=== PATIENT | male | born 1945 | race Caucasian/White ===

== ENCOUNTER 2020-06-11 15:58 | Outpatient (CLI) | payer OTHER, SELFPAY ==
--- NOTE | ~2020-06-11 | CT_ITS ---
EXAMINATION: CT brain wo con DATE: 06/11/2020 17:08 INDICATION: Cerebral infarction TECHNIQUE: Computed tomography (CT) of the head was performed without intravenous contrast. The dose- length product was 605.33 mGy-cm. Automated exposure control and iterative reconstruction technique w ere employed. COMPARISON: None FINDINGS: No acute intracranial hemorrhage, infarction, mass or mass effect. No ventriculomegaly or m idline shift. Basilar cisterns are patent. There is intracranial atherosclerosis. There are scattered mild periventricular and subcortical white matter changes, most likely related to small vessel ische alonzo disease (microangiopathy). Basilar cisterns are patent. Paranasal sinuses and mastoids are pneuma tized. No depressed skull fractures. IMPRESSION: 1. No acute intracranial abnormality. 2: Chronic age-related findings. Reviewed, dictated and finalized at location A. R BUSINESS DEVELOPER
--- NOTE | ~2020-06-11 | US_ITS ---
EXAMINATION: US carotid duplex BI DATE: 06/11/2020 17:12 INDICATION: Difficulties with speech or language. TECHNIQUE: Grayscale, color Doppler, and pulsed Doppler images of the cervical carotid arteries were obtained. The degree of vessel stenosis is placed in one of the following categories: normal, <50%, 5 0-69%, >=70% but less than near-occlusion, near-occlusion, or total occlusion. Note that percent sten osis relative to normal distal artery lumen diameter is indirectly measured from velocity measurement s as described by Bob, et al. Radiology 2003; 229:340-346. Notes: Normal: Peak systolic velocity <125 centimeters/sec and no plaque <50%. Peak systolic velocity <125 ( EDV <40; ICA/CCA PSV ratio <2.0; used these factors only a tandem lesions or low cardiac output or co ntralateral disease) 50-69 %: PSV 125-230 (EDV 40-100; ratio 2-4) >= 70% but less than near occlusion: PSV greater than 230 (EDV > 100; ratio> 4.0) Near Occlusion: PSV that is variable; markedly narrowed lumen Occlusion: Absent flow on color/spectral Doppler and no lumen on choudhary scale. COMPARISON: None. FINDINGS: RIGHT: The right common carotid artery (CCA) peak systolic velocity (PSV) is 111 cm/s. The right internal ca rotid artery (ICA) PSV is 72 cm/s. The right ICA end-diastolic velocity (EDV) is 31 cm/s. The right I CA/CCA PSV ratio is 0.65. The external carotid artery (ECA) PSV is 115 cm/s. There is antegrade flow in the right vertebral artery. LEFT: The left CCA PSV is 92 cm/s. The left ICA PSV is 64 cm/s. The left ICA EDV is 24 cm/s. The left ICA/C CA PSV ratio is 0.69. The ECA PSV is 94 cm/s. There is antegrade flow in the left vertebral artery. IMPRESSION: 1. Less than 50% stenosis in the right internal carotid artery by sonographic criteria. 2. Less than 50% stenosis in the left internal carotid artery by sonographic criteria. Reviewed, dictated and finalized at location A. US ADMINISTRATOR IMPRESSION: 1. Less than 50% stenosis in the right internal carotid artery by sonographic john coleman. 2. Less than 50% stenosis in the left internal carotid artery by sonographic sandee taveras.
--- NOTE | ~2020-06-11 | US_ITS ---
EXAMINATION:US venous doppler LE LT INDICATION:Left leg swelling TECHNIQUE: Multiple grayscale, color flow and Doppler images of the left lower extremity deep venous systems were obtained and reviewed. COMPARISON:No prior studies for comparison. FINDINGS: The common femoral, superficial femoral and popliteal veins demonstrate normal respiratory variation, augmentation and compressibility. Color flow is also seen within the posterior tibial, pe roneal, greater saphenous and profunda veins. IMPRESSION: 1: No lower extremity deep venous thrombosis. Reviewed, dictated and finalized at location A. BAG STRIPPER
== END 2020-06-11 15:59 | disposition home or self-care (01) ==
LOC: ANHIMG 15:59
PROVIDERS: PCP Emergency Medicine; Visit Provider Emergency Medicine
DX: I63.9 Cerebral infarction, unspecified (principal); M79.89 Other specified soft tissue disorders; R09.89 Other specified symptoms and signs involving the circulatory and respiratory systems; I65.23 Occlusion and stenosis of bilateral carotid arteries
CPT/HCPCS: 70450; 93880; 93971

== ENCOUNTER 2020-06-18 06:34 | Outpatient (CLI) | payer OTHER, SELFPAY ==
--- NOTE | ~2020-06-18 | MR_ITS ---
EXAMINATION: MRA brain wo con DATE: 06/18/2020 07:50 INDICATION: Cerebral infarction, unspecified. TECHNIQUE: Magnetic resonance angiography (MRA) of the brain was performed without intravenous contra st with T1-weighted SPGR by the 3D [id number] technique. Maximum intensity projection 3D-reconstr uctions were obtained. COMPARISON: Head CT 06/11/2020 FINDINGS: Left vertebral artery is dominant. There is no significant stenosis of basilar artery or the posterio r cerebral arteries. There is no significant stenosis of the intracranial internal carotid arteries o r anterior or middle cerebral arteries. Anterior communicating artery is normal. Posterior communicat ing arteries are not identified. There is no aneurysm. IMPRESSION: 1. Normal head MRA. Reviewed, dictated and finalized at location A. ONAL VAN OWNER OPERATOR IMPRESSION: 1. Normal head MRA.
== END 2020-06-18 06:35 | disposition home or self-care (01) ==
LOC: ANHIMG 06:35
PROVIDERS: PCP Emergency Medicine; Visit Provider Emergency Medicine
DX: I63.9 Cerebral infarction, unspecified (principal)
CPT/HCPCS: 70544

== ENCOUNTER 2020-08-26 12:27 | Outpatient (CLI) | payer OTHER, SELFPAY ==
--- NOTE | ~2020-08-26 | US_ITS ---
EXAMINATION: US venous doppler LE RT DATE: 08/26/2020 12:54 INDICATION: Right lower limb swelling. TECHNIQUE: Grayscale ultrasound images without and with compression and Doppler ultrasound images of the right lower extremity veins were obtained. COMPARISON: None. FINDINGS: The visualized portions of right common femoral vein, profunda (deep) femoral vein, femoral vein, pop liteal vein, peroneal veins, posterior tibial veins, and greater saphenous vein outflow are patent. IMPRESSION: 1. No deep venous thrombosis. Reviewed, dictated and finalized at location B.
== END 2020-08-26 12:28 | disposition home or self-care (01) ==
PROVIDERS: PCP Emergency Medicine; Visit Provider Emergency Medicine
DX: I73.9 Peripheral vascular disease, unspecified (principal); R60.9 Edema, unspecified
CPT/HCPCS: 93971

== ENCOUNTER 2023-02-23 11:15 | Outpatient (RCR) | payer MEDICARE, SELFPAY ==
--- NOTE | 2023-01-21 16:44 | PTOPEVAL1 ---
Assessment and note entered by Meghann Fraser, PT Evaluation Information Assessment Status Evaluation Diagnosis Spondylosis without myelopathy or radiculopathy, weakness, other maliase Therapy conditions other abnormalities of gait and mobility Subjective Information Was in [place] and may have been exposed to Agent [place] 2018 had tremors and then noted would walk and like a drunken inker . Pt reports fell 2019 fell out of house and broke right hip, corected with pins. But reports is dragging left hip with walking. Went to [facility], then [facility], then out patient for right hip. 2020 had a slight stroke, and couldn't talk for a few days . 2021 was outside on the law mower then came in and everything gave out on me . Reported Pain Level Pain Score 0: Self Report Assessment PT Clinical Summary Pt presents with complaints of overall difficulty in mobility and weakness in addition to back pain with activity. Pt and report pt began to decline after hip fracture in 2019, but prior to that noted a tremor and balance deficit in 2018. Pt demos overall weakness, decreased endurance, and gait abnormality. Pt will benefit from physical therapy in order to address deficits, improve mobility and decreased overall burden of care. Plan of Care Interventions Electrical Stimulation,Hot Pack/Cold Pack,Manual Therapy,Neuro Re-education,Patient/Caregiver Educati,Therapeutic Activities,Therapeutic Exercise,Ultrasound Other Interventions DME for foot drop PT Services Indicated Yes Treatment Frequency and 1-2x weekly x 4 weeks Duration These treatments will address the objective and functional deficits as defined above. The patient will be advanced safely and appropriately in order for the patient to progress towards his/her prior level of function. Additional exercises will be introduced and as well as a comprehensive home exercise program upon discharge, if needed, ?to ensure carryover of functional gains achieved in the clinic. This treatment plan has been reviewed and agreement upon by the patient.
--- NOTE | 2023-01-21 16:46 | OPREHPOC ---
Outpatient Therapy Plan of Care This is a Multidisciplinary Plan of Care that may contain components documented by all disciplines (PT, OT, and ST.) PT Problem 1 PT Problem #1 Knowledge Deficit PT Goal 1 Goal Pt will be independent in HEP Pt will verbalize understanding of diagnosis and prognosis Target Visit 8 PT Problem 2 PT Problem #2 Impaired Gait PT Goal 1 Goal Pt will demo 2 min walk test of 60 ft with LRAD Target Visit 8 PT Goal 2 Goal Pt will demo 2 min walk test of 100 ft with LRAD PT Problem 3 PT Problem #3 Impaired Balance PT Goal 1 Goal Pt will demo a 5x with to stand of 30 seconds or less with LRAD PT Goal 2 Goal Pt will demo a 5x sit to stand of 20 seconds or less with LRAD PT Problem 4 PT Problem #4 Impaired Strength PT Goal 1 Goal Pt will demo 4-/5 LE strength BLE PT Goal 2 Goal Pt will demo appropriate standing alignment with LRAD due to functional glute max strength
--- NOTE | 2023-02-23 12:34 | PTOPDC ---
Assessment and note entered by Meghann Fraser, PT Assessment Status Discharge Diagnosis Spondylosis without myelopathy or radiculopathy, weakness, other maliase Subjective Information Has new diagnosis of congestive heart failure, is picking up medication today. Is out of breathe with this. Saw Neurosurgeon Is also seeing Parkinson's specialist today No falls since started therapy. Reports has some improvement in getting legs up on bed, and improvement in getting into and out of jeep. states is same in mobility, dressing, getting out of wheel chair. Also states with all the doctor's appointments they have coming up will not be able to continue attending therapy at this time Reported Pain Level Pain Score 0: Self Report Assessment PT Clinical Summary Pt has attended therapy 5 sessions in 6 weeks overall. Has a new diagnosis of congestive heart failure which he will be starting medication for today. Pt demo's improved 2 min walking however has not met any other goals and has declined in speed of sit>stand activity. Pt's reports they will not be able to attend therapy at this time due to all his doctor's appointments. Pt is thus being discharged from therapy plan of care at this time. Plan of Care PT Services Indicated No
== END 2023-02-23 13:42 | disposition home or self-care (01) ==
LOC: ANHHIPT 11:15
PROVIDERS: PCP Family Medicine; Visit Provider Family Medicine
DX: M47.816 Spondylosis without myelopathy or radiculopathy, lumbar region (principal); R53.81 Other malaise; R53.1 Weakness
CPT/HCPCS: 97110; 97112; 97530; 97750

== ENCOUNTER 2023-07-27 12:38 | Outpatient (CLI) | payer MEDICARE, SELFPAY ==
--- NOTE | 2023-07-27 14:30 | NEURO_ITS ---
Impression: # Non-diabetic with history of congestive heart failure, wheelchair bound and severe (pitting) edema of lower extremities. # Motor/sensory neuropathy. # Needle/EMG exam revealed no fibs or myotonia but decreased motor unit potentials. # Clinical correlation recommended because of severe edema of lower extremities. Nerve Conduction Studies Anti Sensory Summary Table Stim Site NR Peak (ms) P-T Amp (?V) Site1 Site2 Delta-P (ms) Dist (cm) Severino (m/s) Left Saphenous Anti Sensory (Ant Med Mall) NO RESPONSE 14cm NR 14cm Ant Med Mall 0.0 Right Saphenous Anti Sensory (Ant Med Mall) NO RESPONSE 14cm NR 14cm Ant Med Mall 0.0 Left Sup Fibular Anti Sensory (Ant Lat Mall) NO RESPONSE 14 cm NR 14 cm Ant Lat Mall 16.0 Right Sup Fibular Anti Sensory (Ant Lat Mall) NO RESPONSE 14 cm NR 14 cm Ant Lat Mall 16.0 Left Sural Anti Sensory (Lat Mall) NO RESPONSE Calf NR Calf Lat Mall 16.0 Right Sural Anti Sensory (Lat Mall) NO RESPONSE Calf NR Calf Lat Mall 16.0 Motor Summary Table Stim Site NR Onset (ms) O-P Amp (mV) Site1 Site2 Delta-0 (ms) Dist (cm) Severino (m/s) Left Peroneal Motor (Vastus Med) Ankle 4.5 1.1 Popit Ankle 10.4 41.0 39 Popit 14.9 0.5 Right Peroneal Motor (Vastus Med) Ankle 4.8 1.2 Popit Ankle 10.0 42.0 42 Popit 14.8 0.1 Left Tibial Motor (Abd Alvarenga Brev) NO RESPONSE Ankle NR Knee NR Right Tibial Motor (Abd Alvarenga Brev) Ankle 4.6 1.1 Knee Ankle 12.4 43.0 35 Knee 17.0 1.0 F Wave Studies NR F-Lat (ms) L-R F-Lat (ms) Left Peroneal (Mrkrs) (EDB) 58.95 1.99 Right Peroneal (Mrkrs) (EDB) 60.94 1.99 Left Tibial (Mrkrs) (Abd Hallucis) 60.00 1.99 Right Tibial (Mrkrs) (Abd Hallucis) 61.99 1.99 EMG Side Muscle Nerve Root Ins Act Fibs Amp Dur Recrt Comment Right AntTibialis Dp Br Fibular L4-5 Nml Nml Decr >12ms +3 Right Gastroc Tibial S1-2 Nml Nml Decr >12ms +3 Right Fibularis Long Sup Br Fibular L5-S1 Nml Nml Decr >12ms +3 Right Flex Dig Long Tibial L5-S2 Nml Nml Decr >12ms +3 Right Ext Dig Brev Dp Br Fibular L5, S1 Nml Nml Decr >12ms +3 Left AntTibialis Dp Br Fibular L4-5 Nml Nml Decr >12ms +3 Left Gastroc Tibial S1-2 Nml Nml Decr >12ms +3 Left Fibularis Long Sup Br Fibular L5-S1 Nml Nml Decr >12ms +3 Left Flex Dig Long Tibial L5-S2 Nml Nml Decr >12ms +3 Left Ext Dig Brev Dp Br Fibular L5, S1 Nml Nml Decr >12ms +3 MTDD
== END 2023-07-27 12:39 | disposition home or self-care (01) ==
PROVIDERS: PCP Family Medicine; Referring Provider Podiatrist Foot & Ankle Surgery; Visit Provider Family Medicine
DX: R22.43 Localized swelling, mass and lump, lower limb, bilateral (principal); G62.9 Polyneuropathy, unspecified; M21.379 Foot drop, unspecified foot; Z86.79 Personal history of other diseases of the circulatory system
CPT/HCPCS: 95886; 95911

== ENCOUNTER 2025-03-02 11:59 | Emergency (ER) | payer MEDICARE, SELFPAY ==
--- OUTSIDE RECORDS SUMMARY | 2025-03-02 12:02 | XMS_ITS | Clinical Summary ---
Author Organization [facility] Address [address] [place] [address] Care Team Providers Care Ward Secretary Name Role Phone Elliot Maldonado MD Primary Care Provider [phone] Source Comments [facility],non-owned Affiliates and Associated Physician Practices is amultiple site organization consisting of ambulatory clinics and hospital sitesin [place], [place], [place] and [place]. This disclosure is being madepursuant to the Care Everywhere program and may not contain all information available regarding this patient. Last updated 18.[facility] Allergies Active Allergy Reactions Criticality Noted Date Comments Furosemide Swelling 02/25/2023 Tamsulosin Swelling 02/25/2023 Medications * Be aware that medications may not be up to date on this document. Alwaysverify current medications with the patient. rivaroxaban (Xarelto) 20 MG tablet Take 1 (one) tablet by mouth daily with food Active metoclopramide (Reglan) 10 MG tablet Take 1 (one) tablet by mouth 2 times daily Active atorvastatin (Lipitor) 20 MG tablet Take 1 (one) tablet by mouth at bedtime Active digoxin (Lanoxin) 0.125 MG tablet Take 1 (one) tablet by mouth once daily Active Cyanocobalamin (Vitamin B 12) 500 MCG TABS Active Probiotic Product (pocketfungames HEALTH PO) Active Docusate Sodium (STOOL SOFTENER LAXATIVE PO) Active Krill Oil 500 MG CAPS Active CALCIUM CITRATE PO Active Multiple Vitamin (MULTI-VITAMIN DAILY PO) Active Vitamin D3 (D3 2000) 50 MCG (2000 UT) capsule Take 1 (one) capsule by mouth once daily Active TURMERIC PO Active Probiotic Product (PROBIOTIC DAILY PO) Active Active Problems Problem Noted Date Diagnosed Date Encounter for therapeutic drug level monitoring 02/25/2023 02/25/2023 History of cerebrovascular accident 02/25/2023 02/25/2023 Overview (02/25/2023): Feb 03, 2023 Entered By: PIPO HOLBROOK Comment: left hemiparesis 06/2020 Iron deficiency anemia 02/25/2023 Lower urinary tract symptoms 02/25/2023 Other spondylosis, lumbar region 02/25/2023 02/25/2023 Other reduced mobility 02/25/2023 Personal history of (healed) traumatic fracture 02/25/2023 02/25/2023 Atrial fibrillation 02/25/2023 02/25/2023 Tremor 02/25/2023 02/25/2023 Kidney stones 12/03/2021 02/25/2023 Nocturia 12/03/2021 02/25/2023 Current use of long term care social worker anticoagulation 021 02/25/2023 Resolved Problems Problem Noted Date Diagnosed Date Resolved Date Constipation 09/26/2022 02/25/2023 03/25/2023 Social History Tobacco Use Types Packs/Day Years Used Date Smoking Tobacco: Never Smokeless Tobacco: Never Tobacco Cessation:Counseling Given: Not Answered Alcohol Use Standard Drinks/Week Comments Not Currently 0 (1 standard drink = 0.6 oz pur e alcohol) Sex and Gender Information Value Date Recorded Sex Assigned at Not on file Legal Sex Male 3:32 PM CDT Gender Identity Not on file Sexual Orientation Not on file Last Filed Vital Signs Vital Sign Reading Time Taken Comments Blood Pressure 95/66 02/25/2023 9:55 AM CDT Pulse 80 02/25/2023 9:55 AM CDT Temperature 36.7 C (98 F) 02/25/2023 9:55 AM CDT Respiratory Rate - - Oxygen Saturation 99% 02/25/2023 9:55 AM CDT Inhaled Oxygen Concentration - - Weight - - Height - - Body Mass Index - - Plan of Treatment Health Maintenance Due Date Last Done Comments HEPATITIS C SCREENING 04/25/1963 DTAP/TDAP/TD VACCINES (1 - Tdap) 1965 PNEUMOCOCCAL VACCINE 50+ (1 of 1 - PCV) 1996 ZOSTER VACCINE (1 of 2) 1996 Respiratory Syncytial Virus (RSV) Vaccine Pt: or over 60 yrs (1 - 1-dose 75+ series) 2021 DEPRESSION SCREENING 05/09/2024 MEDICARE AWV CALENDAR YEAR 2024 COVID-19 VACCINE ( season) 2025 07/01/2022, 04/08/2021, 08/08/2020, Additional history exists INFLUENZA VACCINE (#1) 2025 02/23/2023 HEPATITIS B VACCINE Aged Out No longe r eligible based on patient's age to complete this topic HIB VACCINE Aged Out No longer eligi ble based on patient's age to complete this topic HPV VACCINE Aged Out No longer eligi ble based on patient's age to complete this topic MENINGOCOCCAL (Group B) VACCINE SHARED DECISION-MAKING Aged Out No longer eligible based on patient's age to complete this topic MENINGOCOCCAL GROUPS A/C/Y/W VACCINE Aged Out No longer eligible based on patient's age to complete this topic Insurance MANAGED MEDICARE ADV Care Teams Ward Secretary Relationship Specialty Start Date End Date Elliot Maldonado MD [address] [place] [phone] PCP - General Family Medicine 02/25/23
--- OUTSIDE RECORDS SUMMARY | 2025-03-02 12:02 | XMS_ITS | Encounter Summary ---
Author Organization [facility] Address [address] [place] [address] Care Team Providers Care Business Office Assistant Name Role Phone Unavailable Primary Care Provider Unavailabl e Encounter Details Date Type Department Care Team (Late st Contact Info) Description 05/28/2018 Lab Requisition [facility] Services [address] [place] [address] [facility], External Provider [address] [place] [address] Illness Social History Tobacco Use Types Packs/Day Years Used Date Smoking Tobacco: Never Assessed Sex and Gender Information Value Date Recorded Sex Assigned at Not on file Legal 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 Gender Identity Not on file Sexual Orientation Not on file documented as of this encounter Plan of Treatment Not on file documented as of this encounter Procedures Procedure Name Priority Date/Time Associated Diagnosis Comments URINALYSIS W/REFLEX MICROSCOPIC Stat 05/27/2018 8:52 PM LANDSCAPE ARTIST Illness documented in this encounter Results * (ABNORMAL) URINALYSIS WITH REFLEX MICROSCOPIC (05/27/2018 8:52 PM LANDSCAPE ARTIST) COLOR UA Dark Yellow Pale to Dark Yellow 05/28/2018 1:19 AM LANDSCAPE ARTIST [facility] CLARITY UA Turbid(A) Clear 05/28/2018 1:19 AM LANDSCAPE ARTIST [facility] SPECIFIC GRAVITY UA 1.019 1.003 - 1.035 05/28/2018 1:19 AM LANDSCAPE ARTIST [facility] PH UA 5.0 5.0 - 8.0 05/28/2018 1:19 AM [facility] LEUKOCYTE ESTERASE UA 1+(A) Negative 05/28/2018 1:19 AM LANDSCAPE ARTIST [facility] NITRITE UA Negative Negative 05/28/2018 1:19 AM LANDSCAPE ARTIST [facility] PROTEIN UA Negative Negative 05/28/2018 1:19 AM [facility] GLUCOSE UA Negative Negative 05/28/2018 1:19 AM [facility] KETONES UA Negative Negative 05/28/2018 1:19 AM [facility] UROBILINOGEN UA 2.0(A) <2.0 mg/dL 9 1:19 AM [facility] BILIRUBIN UA Negative Negative 05/28/2018 1:19 AM [facility] BLOOD UA Negative Negative 05/28/2018 1:19 AM [facility] WBC UA 3-5(A) 0 - 2 /hpf 05/28/2018 1:19 AM [facility] RBC UA 0-2 0 - 2 /hpf 05/28/2018 1:19 AM [facility] [facility] BACTERIA UA 1+(A) Negative /hpf 05/28/2018 1:19 AM [facility] [facility] EPITHELIAL CELLS, URINE 0-5 0 - 5 /hpf 05/28/2018 1:19 AM [facility] [facility] HYALINE CAST None Seen None Seen, 0-2 /lpf 05/28/2018 1:19 AM [facility] Ascorbic Acid UA Negative Negative 05/28/19 1:19 AM [facility] [facility] Urine URINE SPECIMEN OBTAINED BY CLEAN CATCH PROCEDURE / Unknown Collection / Unknown 05/27/2018 8:52 PM LANDSCAPE ARTIST 05/28/2018 12:40 AM LANDSCAPE ARTIST us External Provider [facility] URINE ORDERABLES Final Re sult [facility] CLIA# [id number] [place] [address] documented in this encounter Visit Diagnoses Diagnosis Illness Other unknown and unspecified cause of morbidity or mortality documented in this encounter
--- OUTSIDE RECORDS SUMMARY | 2025-03-02 12:02 | XMS_ITS | Clinical Summary ---
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
--- OUTSIDE RECORDS SUMMARY | 2025-03-02 12:02 | XMS_ITS | Patient Health Record ---
Author Organization [facility] Address [address] [place] [address] Reason For Referral No Information Plan Of Treatment No Information
--- OUTSIDE RECORDS SUMMARY | 2025-03-02 12:06 | XMS_ITS | Encounter Summary ---
Author Organization [facility] Address [address] [place] [address] Care Team Providers Care Assistant Coach Name Role Phone Elliot Maldonado MD Primary Care Provider + [phone] Keyona Ramirez [facility] Primary Care Provider + Otis Moy MD Unavailable [phone] Encounter Details Date Type Department Care Team (Late st Contact Info) Description 09/21/2023 Abstract [facility] [address] Sherine Cobos MA Social History Tobacco Use Types Packs/Day Years Used Date Smoking Tobacco: Never Smokeless Tobacco: Never Alcohol Use Standard Drinks/Week Comments Not Currently 0 (1 standard drink = 0.6 oz pur e alcohol) rare [facility] Utilities Answer Date Recorded In the past 12 months has e [employer], gas, oil, or water [employer] threatened to shut off services in your home? No 04/11/2023 Humiliation, Afraid, Rape, and Kick questionnair e Answer Date Recorded Within the last year, have y ou been afraid of your partner or ex-partner? No 04/11/2023 Within the last year, have y ou been humiliated or emotionally abused in other ways by your partner or ex-partner? No Within the last year, have y ou been kicked, hit, slapped, or otherwise physically hurt by your partner or ex-partner? No 04/11/2023 Within the last year, have y ou been raped or forced to have any kind of sexual activity by your partner or ex-partner? No 04/11/2023 Social Connection and Isolation Panel Answer Date Recorded In a typical week, how many times do you talk on the phone with family, friends, or neighbors? More than three times a week 04/11/2023 How often do you get togethe r with friends or relatives? Three times a week 04/11/2023 How often do you attend chur or temple services? Never 04/11/2023 Do you belong to any clubs o r organizations such as jewish groups, unions, fraternal or athletic groups, or school groups? No 04/11/2023 How often do you attend meet ings of the clubs or organizations you belong to? Never 04/11/2023 Are you , , di vorced, , never , or living with a partner? 04/11/2023 AUDIT-C Answer Date Recorded Q1: How often do you have a drink containing alcohol? Never 04/11/2023 Q2: How many drinks containi ng alcohol do you have on a typical day when you are drinking? Patient does not drink Q3: How often do you have si x or more drinks on one occasion? Never 04/11/2023 Overall Financial Resource Strain (CARDIA) Answe r Date Recorded How hard is it for you to pa y for the very basics like food, housing, medical care, and heating? Not hard at all 04/11/2023 PHQ-2 Answer Date Recorded Patient Health Questionnaire-2 Score 0 04/11/2023 [facility] - Occupational Stress Questionnaire Answer Date Recorded Do you feel stress - tense, restless, nervous, or anxious, or unable to sleep at night because your mind is troubled all the time - these days? Not at all 04/11/2023 Exercise Vital Sign Answer Date Recorde d On average, how many days pe r week do you engage in moderate to strenuous exercise (like a brisk walk)? 0 days 04/11/2023 On average, how many minutes do you engage in exercise at this level? 0 min 04/11/2023 Hunger Vital Sign Answer Date Recorded Within the past 12 months, y ou worried that your food would run out before you got the money to buy more. Never true 04/11/20 23 Within the past 12 months, t he food you bought just didn't last and you didn't have money to get more. Never true 04/11/2023 PRAPARE - Transportation Answer Date Re corded In the past 12 months, has l ack of transportation kept you from medical appointments or from getting medications? No 08/2022 In the past 12 months, has l ack of transportation kept you from meetings, work, or from getting things needed for daily living? No 04/11/2023 Housing Stability Vital Sign Answer Corey e Recorded In the last 12 months, was t here a time when you were not able to pay the mortgage or rent on time? No 04/11/2023 In the last 12 months, how many places have you lived? 1 04/11/2023 In the last 12 months, was t here a time when you did not have a steady place to sleep or slept in a long-term (including now)? No 04/11/2023 Sex and Gender Information Value Date Recorded Sex Assigned at Not on file Legal Sex Male 4:20 PM CDT Gender Identity Not on file Sexual Orientation Not on file documented as of this encounter Functional Status * Are you deaf or do you have serious difficulty hearing Answer Date of Assessment Author Status No 04/11/2023 7:44 PM Wing Culver RN Active * Are you blind or do you have serious difficulty seeing, even when wearing glasses? Answer Date of Assessment Author Status No 04/11/2023 7:44 PM Wing Culver RN Active * Do you have serious difficulty walking or climbing stairs? Answer Date of Assessment Author Status Yes 04/11/2023 7:44 PM Wing Culver RN Active * Do you have difficulty dressing or bathing? Answer Date of Assessment Author Status Yes 04/11/2023 7:44 PM Wing Culver RN Active * Because of a physical, mental, or emotional condition, do you have difficulty doing errands alone such as visiting a doctor's office or shopping? Answer Date of Assessment Author Status Yes 04/11/2023 7:44 PM Wing Culver RN Active documented as of this encounter Mental Status * Because of a physical, mental, or emotional condition, do you have serious difficulty concentrating, remembering, or making decisions? Answer Entry Date Author Status No 04/11/2023 7:44 PM Wing Culver RN Active documented in this encounter Plan of Treatment Upcoming Encounters Date Type Department Care Team (Late st Contact Info) Description 03/04/2025 11:45 AM CDT Office Visit [facility] [address] [place] [id number] Otis Moy MD [facility]. [address] [address] documented as of this encounter Procedures Procedure Name Priority Date/Time Associated Diagnosis Comments COMPREHENSIVE METABOLIC PANEL Routine 08/29/2023 LIPID PANEL Routine 08/29/2023 documented in this encounter Results * COMPREHENSIVE METABOLIC PANEL (08/29/2023) SODIUM S/P/B 138 GLUCOSE 89 mg/dL AST 24 BUN 15.4 CREATININE S/P/B 0.77 0.7 - 1.3 CALCIUM S/P/B 8.7 POTASSIUM S/P/B 4.3 CHLORIDE S/P/B 112 ALT 20 GFR ESTIMATE 92.2 us Default History Genericprovider LABORATORY Edited Result - Final * LIPID PANEL (08/29/2023) CHOLESTEROL 90 TRIGLYCERIDES 48 HDL 31 LDL (CALCULATED) 49 us Default History Genericprovider LABORATORY Edited Result - Final documented in this encounter Visit Diagnoses Not on filedocumented in this encounter Additional Health Concerns Assessment Noted Time PHQ-9 Depression Total Score: 0 08/11/19 12:55 PM CDT documented as of this encounter Care Teams Assistant Coach Relationship Specialty Start Date End Date Elliot Maldonado MD [address] [place] [address] PCP - General FAMILY PRACTICE 01/24/23 02/27/24 Keyona Ramirez, [employer] [place] [address] PCP - General Nurse Practitioner Family 02/28/24 [place] [id number] [address] [address] Consulting Physician CARDIOVASCULAR DISEASE 02/21/25 documented as of this encounter
--- OUTSIDE RECORDS SUMMARY | 2025-03-02 12:06 | XMS_ITS | Clinical Summary ---
Author Organization [facility] Address [address] [place] [address] Care Team Providers Care Oil Well Logger Name Role Phone Keyona Ramirez [facility] Primary Care Provider + Otis Moy MD Unavailable [phone] Allergies Active Allergy Reactions Criticality Noted Date Comments Cefdinir Rash Low 09/07/2024 states its a very serious rash Furosemide Swelling 12/02/2021 Tamsulosin Swelling 10/20/2021 Medications Cholecalcifer ol (VITAMIN D) 50 MCG (1999) TabIndication s:Supplementa ry factors related to causes of morbidity classified elsewhere Take 2 tablets (100 mcg total) by mouth 2 (two) times a day. Indications: Supplementary factors related to causes of morbidity classified elsewhere 11/07/19 22 Active Incontinence Supplies (MALE URINAL) MiscIndicatio ns:Renal calculi Use as needed for straining urine in order to collect renal calculi 1 each 10/01/19 22 Active rivaroxaban (XARELTO) 20 MG Tab tablet Take 1 tablet (20 mg total) by mouth daily with supper. Take with food 30 tablet 6 02/16/20 22 Active MISC NATURAL PRODUCTS OR Take by mouth daily. Total beets Active metoclopramid e (REGLAN) 10 MG tablet Take 1 tablet (10 mg total) by mouth 2 (two) times daily. 09/03/19 24 Active B Complex-C Tab tablet Take 1 tablet by mouth daily. Active MISC NATURAL PRODUCTS ER OR Take by mouth 2 (two) times a day. TRIFLEX Active atorvastatin (LIPITOR) 20 MG tablet Take 1 tablet (20 mg total) by mouth nightly at bedtime. 90 tablet 3 02/27/20 24 Active digoxin (LANOXIN) 0.125 MG tablet Take 1 tablet by mouth once daily 90 tablet 02/20/20 25 Active digoxin (LANOXIN) 0.125 MG tablet Take 1 tablet (125 mcg total) by mouth daily. 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 [place] [address] Christiane Mckeon FNP USE ECHOCARDIOGRAM 02/21/2025 1:35 PM CDT Laboratory Only [facility] [address] [place] [address] Dustin Nelson MD 02/21/2025 1:19 PM CDT - 02/21/2025 11:59 PM CDT Hospital Encounter [facility] [address] [place] [address] Keyona Ramirez FNP- Discharge Disposition: Home or Self Care (Routine Discharge) 02/21/2025 1:17 PM CDT - 02/21/2025 1:18 PM CDT Hospital Encounter [facility] Ultrasound [address] [place] [address] Christiane Mckeon FNP Discharge Disposition: Home or Self Care (Routine Discharge) 02/21/2025 Orders Only [facility] [address] [place] [address] Keyona Ramirez, [facility]- 02/21/2025 Travel from Last 3 Months Immunizations Immunization Administration Dates Next Due Influenza (Generic) 02/06/2023 Influenza Adult (Generic) 02/23/2023,08/2021(Deferred: Patient Refused) MODERNA COVID-19 (12+) MRNA, LNP-S, PF, 100 MCG/ 0.5 ML DOSE 04/05/2023 PFIZER COVID-19 (ORIGINAL FORMULATION, PURPLE CAP) mRNA, LNP-S, PF, 30 MCG/0.3 ML DOSE 07/01/2022,04/08/2021,08/08/2020,2020 Pneumococcal (Prevnar 20) 02/08/2022 Family History Medical History Relation Comments Stroke Paternal Grandfather Relation Status Comments Father Mother Paternal Grandfather Social History Tobacco Use Types Packs/Day Years Used Date Smoking Tobacco: Never Smokeless Tobacco: Never Alcohol Use Standard Drinks/Week Comments Not Currently 0 (1 standard drink = 0.6 oz pur e alcohol) rare [facility] Utilities Answer Date Recorded In the past 12 months has [employer], gas, oil, or water [employer] threatened to shut off services in your [...] 04/11/2023 How often do you attend chur ch or religion services? Never 04/11/2023 Do you belong to any clubs o r organizations such as quaker groups, unions, fraternal or athletic groups, or [...] Recorded Patient Health Questionnaire-2 Score 0 04/11/2023 [facility] of Occupat ional [facility] - Occupational Stress Questionnaire Answer Date Recorded [...] place to sleep or slept in a correction (including now)? No 04/11/2023 Sex and Gender Information Value Date Recorded Sex Assigned at Not on file Legal Sex Male 4:20 PM CDT Gender Identity Not on file Sexual Orientation Not on file Last Filed Vital Signs Vital Sign Reading Time Taken Comments Blood Pressure 90/60 09/03/2024 11:39 AM CDT Pulse 70 09/03/2024 11:39 AM CDT Temperature 36.3 C (97.3 F) 04/16/2023 7:53 AM SALON/SPA MANAGER Respiratory Rate 18 04/16/2023 7:53 AM SALON/SPA MANAGER Oxygen Saturation 98% 02/27/2024 9:16 AM CDT Inhaled Oxygen Concentration - - Weight 108 kg (238 lb) 06/13/2024 11:26 AM SALON/SPA MANAGER Height 177.8 cm (5' 10) 09/03/2024 11:39 AM CDT Body Mass Index 34.15 06/13/2024 11:26 AM SALON/SPA MANAGER Plan of Treatment Upcoming Encounters Date Type Department Care Team (Late st Contact Info) Description 03/04/2025 11:45 AM CDT [facility] [address] [place] [phone] Otis Moy MD [facility]. [address] [address] Health Maintenance Due Date Last Done Comments Hepatitis C 1964 DTaP, Tdap and Td Vaccines (1 - Tdap) 1965 Zoster Vaccines (1 of 2) 1996 RSV Immunization or 60+ Years (1 - 1-dose 75+ series) 2021 Annual Medicare Wellness Visit 07/24/2023 07/22/2022 PHQ-2 (Physician [place]) 05/09/2024 04/11/2023 COVID-19 Vaccine ( season) 2025 04/05/2023, 07/01/2022, 04/08/2021, Additional history exists Influenza Adult (#1) 2025 03/13/2024, 02/23/2023, 02/06/2023 Colorectal Cancer Screening Colonoscopy (10 Years) Discontinued 09/24/2015 Pneumococcal Vaccine: 50+ Years Completed 02/08/2022 Hepatitis A Vaccines Aged Out No long er eligible based on patient's age to complete this topic Meningococcal B Vaccine Aged Out No l onger eligible based on patient's age to complete this topic Meningococcal Vaccine Aged Out No mary ravin eligible based on patient's age to complete this topic RSV Immunizations Under 20 Months Aged Out No longer eligible based on patient's age to complete this topic Procedures Procedure Name Priority Date/Time Associated Diagnosis Comments USE ECHOCARDIOGRAM Routine 02/21/2025 2 :38 PM CDT Chronic diastolic CHF (congestive heart failure) ([facility]) NSVT (nonsustained ventricular tachycardia) ([facility]) VITAMIN D, 25 OH Routine 02/21/2025 1:46 PM CDT DIGOXIN Routine 02/21/2025 1:32 PM CDT Weakness Other fatigue VITAMIN B-12 Routine 02/21/2025 1:32 PM CDT Weakness Other fatigue TSH W/REFLEX Routine 02/21/2025 1:32 PM CDT Weakness Other fatigue COMPREHENSIVE METABOLIC PANEL Routine 02/21/2025 1:32 PM CDT Weakness Other fatigue CBC W/DIFF AUTOMATED Routine 02/21/2025 1:32 PM CDT Weakness Other fatigue COLONOSCOPY GENERIC (SCAN ORDER) 09/24/2015 from Last 3 Months or Most Recently Relevant to Health Maintenance Results * USE ECHOCARDIOGRAM (02/21/2025 2:38 PM CDT) Anatomical Region Laterality Modality Cardiac Ultrasound 02/21/2025 1:58 PM CDT Narrative 02/22/2025 12:46 PM CDT TYRONE BETANCOURT Pat.Name: Hema Delong Pat.ID: [id number] .Date: 02/21/2025 Refer.MD: Jose, [facility] Radiology Exam Time: 1:58:00 PM Study Type:OUTREACH Height: 70 in Weight: 200 lb BSA: 2.09 m2 Age: 12 1945,79Y Sex: M Sonogrphr: Dulce Pat. Stat.:Outpatient CPT - 4: 03860 Reason for Study:AF, NSVT Procedures: Study performed at [place], [place] and interpreted by [facility]. 2D, M-mode, Doppler, Color Flow ++++++++++++++++++++++++++++++++++++ SUMMARY: ++++++++++++++++++++++++++++++++++++ Left ventricle is normal in size and systolic function Estimated EF of > 55% Right ventricle is normal in size with depressed systolic function No significant valve dysfunction. Normal estimated pulmonary pressures. ++++++++++++++++++++++++++++++++++++ FINDINGS: ++++++++++++++++++++++++++++++++++++ LV: The left ventricular size is normal. Left ventricular function is normal. The ejection fraction is >55%. Diastolic filling is normal for age. RV: The right ventricular size is normal. Right ventricular systolic function is depressed. Right ventricular systolic pressure is 26 mmHg. LA: Left atrial size is normal. RA: The right atrial size is normal. VELASQUEZ: No evidence of pericardial effusion. AO: The sinus of Valsalva measures 3.76cm. The proximal ascending aorta measures 3.93cm. PA: Estimated right atrial pressure of 3 mmHg. SVn: Inferior vena cava is normal. Inferior vena cava shows >50% collapse with respiration consistent with normal right atrial pressure. AV: The aortic valve is trileaflet. There is no aortic stenosis. There is no evidence of aortic regurgitation. MV: The mitral valve is structurally normal. There is trace mitral regurgitation. PV: Trace pulmonic regurgitation. Pulmonic valve not well visualized. TV: The tricuspid valve appears structurally normal. There is trace tricuspid regurgitation. <Electronic Signature> 02/22/2025 12:46 PM Otis Moy M.D. Procedure Note Otis Moy MD - 02/22/2025 TYRONE BETANCOURT Pat.Name: Hema Delong [facility].ID: [id number] .Date: 02/21/2025 Refer.MD: Jose, [facility] Radiology Exam Time: 1:58:00 PM Study Type:OUTREACH Height: 70 in Weight: 200 lb BSA: 2.09 m2 Age: 12 1945,79Y Sex: M Sonogrphr: Dulce Grimaldo. Stat.:Outpatient CPT - 4: 62649 Reason for Study:AF, NSVT Procedures: Study performed at [place], [place] and interpreted by [facility]. 2D, M-mode, Doppler, Color Flow ++++++++++++++++++++++++++++++++++++ SUMMARY: ++++++++++++++++++++++++++++++++++++ Left ventricle is normal in size and systolic function Estimated EF of > 55% Right ventricle is normal in size with depressed systolic function No significant valve dysfunction. Normal estimated pulmonary pressures. ++++++++++++++++++++++++++++++++++++ FINDINGS: ++++++++++++++++++++++++++++++++++++ LV: The left ventricular size is normal. Left ventricular function is normal. The ejection fraction is >55%. Diastolic filling is normal for age. RV: The right ventricular size is normal. Right ventricular systolic function is depressed. Right ventricular systolic pressure is 26 mmHg. LA: Left atrial size is normal. RA: The right atrial size is normal. VELASQUEZ: No evidence of pericardial effusion. AO: The sinus of Valsalva measures 3.76cm. The proximal ascending aorta measures 3.93cm. PA: Estimated right atrial pressure of 3 mmHg. SVn: Inferior vena cava is normal. Inferior vena cava shows >50% collapse with respiration consistent with normal right atrial pressure. AV: The aortic valve is trileaflet. There is no aortic stenosis. There is no evidence of aortic regurgitation. MV: The mitral valve is structurally normal. There is trace mitral regurgitation. PV: Trace pulmonic regurgitation. Pulmonic valve not well visualized. TV: The tricuspid valve appears structurally normal. There is trace tricuspid regurgitation. <Electronic Signature> 02/22/2025 12:46 PM Otis Moy M.D. Christiane BRAMBILAP ECHO Final Result * VITAMIN D, 25 OH (02/21/2025 1:46 PM CDT) [facility] VITAMIN D 25 HYDROXY S/P/B 61 30 - 100 NG/ML 02/21/2025 2:40 PM CDT [facility] Comment: INTERPRETATION DEFICIENT <20 INSUFFICIENT 20-29 SUFFICIENT 30-100 02/21/2025 1:46 PM CDT Dustin Nelson MD LABORATORY Final Result [facility] [address] [place] [address], [place] [phone] * TSH W/REFLEX (02/21/2025 1:32 PM CDT) [facility] TSH 2.914 0.358 - 3.74 uIU/ML 02/21/2025 2:30 PM CDT [facility] Comment: HIGH DOSES OF BIOTIN MAY INTERFERE WITH THIS TEST RESULT. CORRELATION TO CLINICAL HISTORY AND PRESENTATION RECOMMENDED. FREE T4 NOT INDICATED 02/21/2025 1:32 PM CDT Keyona Ruffin Luttrell [facility] Final Re sult Performing Organization Address [facility]/ZIP Co de Phone Number [facility] [address] [place] [address], [place] [phone] * VITAMIN B-12 (02/21/2025 1:32 PM CDT) VITAMIN B12 S/P/B 593 193 - 986 PG/ML 02/21/2025 3:09 PM CDT [facility] 02/21/2025 1:32 PM CDT Keyona Ruffin James [facility] Final Re sult Performing Organization Address [facility]/ZIP Co de Phone Number [facility] [address] [place] [address], [place] [phone] * (ABNORMAL) COMPREHENSIVE METABOLIC PANEL (02/21/2025 1:32 PM CDT) GLUCOSE 129(H) 70 - 99 MG/DL 02/21/2025 2:30 PM CDT [facility] BUN 17 7 - 18 MG/DL 02/21/2025 2:30 PM CDT [facility] CREATININE S/P/B 1.06 0.7 - 1.3 MG/DL 02/21/2025 2:30 PM CDT [facility] SODIUM S/P/B 139 136 - 145 MMOL/L 02/21/2025 2:30 PM CDT [facility] POTASSIUM S/P/B 4.1 3.5 - 5.1 MMOL/L 02/21/2025 2:30 PM T [facility] CHLORIDE S/P/B 106 100 - 108 MMOL/L 02/21/2025 2:30 PM T [facility] CO2 25.7 21 - 32 MMOL/L 02/21/2025 2:30 PM T [facility] CALCIUM S/P/B 8.6 8.5 - 10.1 MG/DL 02/21/2025 2:30 PM T [facility] BILIRUBIN TOTAL S/P/B 0.6 0.2 - 1.2 MG/DL 02/21/2025 2:30 PM [facility] TOTAL PROTEIN S/P/B 6.6 6.4 - 8.2 G/DL 02/21/2025 2:30 PM T [facility] ALBUMIN S/P/B 3.0(L) 3.4 - 5.0 G/DL 02/21/2025 2:30 PM [facility] AST 25 15 - 37 U/L 02/21/2025 2:30 PM [facility] ALT 28 16 - 60 U/L 02/21/2025 2:30 PM [facility] ALKALINE PHOSPHATASE S/P/B 74 50 - 136 U/L 02/21/2025 2:30 PM [facility] ANION GAP 7.3 5 - 15 MMOL/L 02/21/2025 2:30 PM T [facility] BUN CREATININE RATIO 16.0 6 - 26 02/21/2025 2:30 PM [facility] A/G RATIO 0.8(L) 1.0 - 2.0 RATIO 02/21/2025 2:30 PM T [facility] GFR ESTIMATE 72(L) >90 ML/MIN/1.7 3 M2 02/21/2025 2:30 PM CDT [facility] Comment: NOTE: eGFR is not calculated for patients <18 years of age. This is an estimated GFR calculation using the new CKD EPI creatinine equation without race and so does not require a correction factor for race. This estimated GFR should not be used for calculating drug doses. 02/21/2025 1:32 PM CDT us Keyona Ramirez [facility] Final Re sult [facility] [address] [place] [address], * (ABNORMAL) CBC W/DIFF AUTOMATED (02/21/2025 1:32 PM CDT) WBC 5.50 4.4 - 11.0 x10'3/uL 02/21/2025 2:08 PM CDT [facility] RBC 4.75 4.50 - 5.90 x10'6/uL 02/21/2025 2:08 PM CDT [facility] HGB 14.6 14.0 - 17.5 G/DL 02/21/2025 2:08 PM CDT [facility] HCT 46.1 41.5 - 50.4 % 02/21/2025 2:08 PM CDT [facility] MCV 97.1(H) 80.0 - 96.0 FL 02/21/2025 2:08 PM CDT [facility] MCH 30.7 26.5 - 31.4 PG 02/21/2025 2:08 PM CDT [facility] MCHC 31.7(L) 31.9 - 34.8 G/DL 02/21/2025 2:08 PM CDT [facility] RDW 13.9 12.3 - 14.3 % 02/21/2025 2:08 PM CDT [facility] PLT 144(L) 151 - 353 x10'3/uL 02/21/2025 2:08 PM CDT [facility] MPV 11.9 9.7 - 11.9 FL 02/21/2025 2:08 PM CDT [facility] RBC MORPHOLOGY NORMAL 02/21/2025 2:08 PM CDT [facility] PLT MORPH. NORMAL 02/21/2025 2:08 PM CDT [facility] WBC MORPHOLOGY NORMAL 02/21/2025 2:08 PM CDT [facility] LYMPHOCYTES % 19.1 15.8 - 45.0 % 02/21/2025 2:08 PM CDT [facility] NEUTROPHILS % 64.6 42.1 - 71.9 % 02/21/2025 2:08 PM CDT [facility] MONOCYTES % 11.8 5.7 - 12.5 % 02/21/2025 2:08 PM CDT [facility] EOSINOPHILS 3.8 0.0 - 5.6 % 02/21/2025 2:08 PM CDT [facility] BASOPHILS 0.5 0.0 - 1.3 % 02/21/2025 2:08 PM CDT [facility] ABS. NEUTROPHILS 3.55 1.40 - 6.00 x10'3/uL 02/21/2025 2:08 PM CDT [facility] IMMATURE GRANS % 0.2 0.0 - 0.5 % 02/21/2025 2:08 PM CDT [facility] ABS. LYMPHOCYTES 1.05 0.80 - 4.70 x10'3/uL 02/21/2025 2:08 PM CDT [facility] 02/21/2025 1:32 PM CDT Keyona Ramirez [facility] Final Re sult Performing Organization Address [facility] Co de Phone Number [facility] [address] [place] [address], [place] [phone] * (ABNORMAL) DIGOXIN (02/21/2025 1:32 PM CDT) DIGOXIN 0.5(L) 0.8 - 2.0 NG/ML 02/21/2025 2:30 PM CDT [facility] Comment: THERAPEUTIC: 0.8-2.0 TOXIC: >2.4 02/21/2025 1:32 PM CDT Keyona Velascoue [facility]ORAT[facility] Final Re sult Performing Organization Address [facility] Co de Phone Number [facility] [address] [place] [address], [place] [phone] * COLONOSCOPY GENERIC (09/24/2015) 09/24/2015 Narrative 09/24/2015 Ordered by an unspecified provider. us Documents Scanned SCANNING Final Result from Last 3 Months or Most Recently Relevant to Health Maintenance Insurance [employer] Advance Directives Documents on File Type Date Recorded Patient In House Cra Expl anation Advance Directives and Living Will 09/12/2020 8:49 AM 12/02/2016 HC POA Advance Directives and Living Will 05/15/2018 12:00 AM POWER OF HEALTHCARE REPRESENTATIVE FO R HEALTH CARE * Full Code (Latest Code Status on File) Date Activated Date Inactivated Comments 04/11/2023 8:08 PM 04/16/2023 3:02 PM * Full Code Date Activated Date Inactivated Comments 12/07/2021 10:33 AM 04/06/2023 8:23 PM * Full Code Date Activated Date Inactivated Comments 11/19/2021 1:56 PM 12/02/2021 4:45 PM Care Teams Oil Well Logger Relationship Specialty Start Date End Date Keyona Ramirez, OWNER OPERATOR- [facility] [facility] [place] [address] PCP - General Nurse Practitioner Family 02/28/24 [place] [id number] [address] Consulting Physician CARDIOVASCULAR DISEASE 02/21/25
--- OUTSIDE RECORDS SUMMARY | 2025-03-02 12:07 | XMS_ITS | Encounter Summary ---
Author Organization [facility] Address [address] [place] [address] Care Team Providers Care Solid Waste Manager Name Role Phone Keyona Ramirez [facility] Primary Care Provider + Otis Moy MD Unavailable [phone] Encounter Details Date Type Department Care Team (Late st Contact Info) Description 02/22/2025 Results Follow-Up [facility] [address] [place], [place] [id number] Christiane Mckeon FNP 3 [facility] [address] [place], [place] [id number] USE ECHOCARDIOGRAM Social History Tobacco Use Types Packs/Day Years Used Date Smoking Tobacco: Never Smokeless Tobacco: Never Alcohol Use Standard Drinks/Week Comments Not Currently 0 (1 standard drink = 0.6 oz pur e alcohol) rare [facility] Utilities Answer Date Recorded In the past 12 months has e electric, gas, oil, or water company threatened to shut off services in your [...] How often do you attend chur or confucianism services? Never 04/11/2023 Do you belong to any clubs o r organizations such as jew groups, unions, fraternal or athletic groups, or [...] Recorded Patient Health Questionnaire-2 Score 0 04/11/2023 [facility] of Occupat ional Health - Occupational Stress [...] place to sleep or slept in a group home (including now)? No 04/11/2023 Sex and Gender [...] Description 03/04/2025 11:45 AM CDT Office Visit [facility] [address] [place] [phone] Otis Moy MD [facility]. [facility] [address] [place] [address] documented as of this encounter Visit Diagnoses Not on filedocumented in this encounter Additional Health Concerns Assessment Noted Time PHQ-9 Depression Total Score: 0 08/11/19 22 12:55 PM CDT documented as of this encounter Care Teams Solid Waste Manager Relationship Specialty Start Date End Date Keyona Ramirez FNP- [facility] [place] [address] PCP - General Nurse Practitioner Family 02/28/24 [place] [id number] [address] [facility] [address] [place], [place] [id number] Consulting Physician CARDIOVASCULAR DISEASE 02/21/25 documented as of this encounter
[2025-03-02 12:13] VITALS: BP 110/65; PULSE 69; RESP 18; TEMP 36.7; O2SAT 99
--- NOTE | 2025-03-02 12:25 | ED.MALEGU ---
HPI - Male Genitourinary General Chief complaint: Urogenital-Male Stated complaint: UTI Patient presents to the [facility] accompanied by spouse with complaints of difficulty urinating with occasional burning intermittently over the last week. Spouse reports patient does have history of congestive heart failure and enlarged prostate so it is difficult for patient to urinate occasionally. Spouse wants to ensure there is no infection present. Denies back or flank pain, abdominal pain, testicular pain, blood in urine, fever, chills, or body aches. Related Data Home Medications ?Medication ?Instructions ?Recorded ?Confirmed ?Last Taken ?Type cholecalciferol (vitamin D3) 25 See Rx Instructions .Route .COMPLEX 06/11/20 02/21/25 Unknown History mcg (1,000 unit) capsule lactobacillus combination no.4 3 3,000 mmu cells PO DAILY 02/18/23 02/21/25 Unknown History billion cell capsule (Probiotic) [id number] 200 mcg-vit K 100 cap PO 02/18/23 02/21/25 Unknown History mcg-lycop 500 [id number] capsule (Daily Multivitamin) digoxin 125 mcg (0.125 mg) tablet 125 mcg PO DAILY 03/15/23 02/21/25 Unknown History atorvastatin 20 mg tablet 20 mg PO DAILY 09/20/23 02/21/25 Unknown History iberogast PO DAILY 03/13/24 02/21/25 Unknown History Allergies Allergy/AdvReac Type Severity Reaction Status Date / Time cefdinir Allergy Mild Rash Verified 03/02/25 12:14 furosemide Allergy Mild Swelling Verified 03/02/25 12:14 tamsulosin Allergy Mild Swelling Verified 03/02/25 12:14 Review of Systems Constitutional: Constitutional: Reports as per HPI, Denies chills, Denies fatigue, Denies fever(s) and Denies weakness Eyes: Eyes: Reports no additional eye complaints Cardiovascular: Cardiovascular: Reports no additional cardiovascular complaints Respiratory: Respiratory: Reports no additional respiratory complaints Gastrointestinal: Gastrointestinal: Reports as per HPI, Denies abdominal pain, Denies diarrhea, Denies nausea and Denies vomiting Genitourinary: Genitourinary: Reports as per HPI, Denies hematuria, Denies oliguria, Denies genital lesions, Reports dysuria, Denies penile discharge, Denies testicular pain, Reports urinary frequency and Denies urinary incontinence Comments: Difficulty urinating Musculoskeletal: Musculoskeletal: Reports as per HPI, Denies back pain and Denies myalgias Integumentary/Breasts: Skin/Breast: Reports as per HPI, Denies erythema, Denies rash and Denies skin ulcer Neurologic: Reports as per HPI and Denies weakness Psychiatric: Psychiatric: Reports no additional psychiatric complaints Endocrine: Endocrine: Reports no additional endocrine complaints Hematologic/Lymphatic: Hematologic/Lymphatic: Reports no additional hematologic/lymphatic complaints Allergic/Immunologic: Allergic/Immunologic: Reports no additional allergic/immunologic complaints [facility] Past Medical History Medical History (Updated 03/02/25 @ 12:55 by Naz Stacy, [employer], [employer]) Foot drop Constipation 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 B12 deficiency Gastroparesis Weakness Lumbar spondylosis Screening PSA (prostate specific antigen) Surgical History Surgical History H/O colonoscopy History of hip surgery Family History Family History Father Family history of cardiovascular disease, Onset Age: 82 Mother Depression Sibling Diabetes mellitus Depression Social History Social History Smoking status: Never smoker Alcohol intake: current Substance use: never Lack of Transportation: No Lack of Food: Never True Current Housing: I Have Housing Concerned About Future Housing: No Difficulty Paying Gas/Electric Bills: No Difficulty Paying for Meds: No Currently Unemployed: No Education: Associate Degree Difficulty w/ Childcare or Family Care: No Occupation/Education: retired Exam Const: General: healthy appearing and no acute distress Nutritional Appearance: well nourished Limitations: physical limitations Resp: Effort & Inspection: normal respiratory effort Auscultation: clear to auscultation bilaterally Cardio: Rate: regular rate Rhythm: regular rhythm GI: Inspection: non-distended GI Palp: Yes Soft to palpation, No Tenderness to palpation present (GI), No Guarding due to palpation present (GI), No Rigid due to palpation, No Hernia present and No Rebound tenderness present Auscultation: normal bowel sounds : General: Yes bladder normal to palpation and Yes no CVA tenderness Skin: General skin exam: normal color Rashes: no rashes Wounds: no wounds Neuro: General: patient oriented x3 Speech: normal speech Gait exam (Neuro): gait abnormal ( patient in wheelchair today) Psych: Mental Status: mental status grossly normal Affect: normal affect Attitude: cooperative Course Course Level of Care: Express Care Visit Vital Signs Vital signs: Vital Signs Temperature 98.0 F 03/02/25 12:13 Pulse Rate 69 03/02/25 12:13 Respiratory Rate 18 03/02/25 12:13 Blood Pressure 110/65 03/02/25 12:13 Pulse Oximetry 99 03/02/25 12:13 Oxygen Delivery Room Air 03/02/25 12:13 Temperature 98.0 F 03/02/25 12:13 Pulse Rate 69 03/02/25 12:13 Respiratory Rate 18 03/02/25 12:13 Blood Pressure 110/65 03/02/25 12:13 Pulse Oximetry 99 03/02/25 12:13 Oxygen Delivery Room Air 03/02/25 12:13 MDM - Male Genitourinary MDM Narrative Medical decision making narrative: urine specimen ordered. No blood, leukocytes, or nitrites. Given patient's medical history likely prostatitis with patient on doxycycline. The patient was evaluated by myself in the express care. History is obtained from patient who is an independent historian and physical exam was performed. Available medical records were reviewed at this time. Exam findings show no acute concerns or changes; patient is non-toxic appearing and is in no distress. Patient is appropriate for outpatient treatment and follow-up. I have evaluated and discussed social determinants of health with the patient that could potentially impact subsequent diagnosis and treatment plans. Differential diagnosis and treatment plan were discussed with the patient. Patient agrees with discussion and after shared medical decision making agrees with plan of care. All questions were answered to the patient's satisfaction. Differential Diagnosis Differential diagnosis: Likely urinary tract infection, urethritis, epididymitis and prostatitis Medical Records Attestation: I reviewed the patient's medical records. Lab Data Attestation: I reviewed the patient's lab results. Discharge Plan Discharge Clinical Impression: Prostatitis Patient Disposition: Home Condition: Stable Instructions: Antibiotic Form, Prostatitis (ED) Additional Instructions: We will send a urine culture off to the lab; to see if there is infection noted in the urine. This is likely prostatitis given your symptoms and medical history. -Your symptoms should begin to improve within a day of starting antibiotics. But you should finish all the antibiotic pills you get. Otherwise your infection might come back. -Also recommend: drink more fluid. It might help flush out germs, and it does no harm -Tylenol/ibuprofen as needed for pain -Follow-up with your primary care provider for urine recheck OR if your symptoms persist, change or worsen significantly before you can contact your personal physician then please, without delay, go to the emergency department for further evaluation. Patient Language: Occitan Prescriptions: New doxycycline monohydrate 100 mg capsule 100 mg PO BID Qty: 28 0RF No Action digoxin 125 mcg (0.125 mg) tablet 125 mcg PO DAILY atorvastatin 20 mg tablet 20 mg PO DAILY clotrimazole 1 % cream 1 applic topical Q12H 56 Days Qty: 90 1RF cholecalciferol (vitamin D3) 25 mcg (1,000 unit) capsule See Rx Instructions .ROUTE .COMPLEX Rx Instructions: Take 2 capsules by mouth in the am and 2 capsule po in the evening; Probiotic 3 billion cell capsule 3,000 mmu cells PO DAILY Rx Instructions: administer with a meal Daily Multivitamin 200-100-500 mcg capsule PO iberogast PO DAILY metoclopramide HCl 10 mg tablet 10 mg PO BID Qty: 180 1RF Xarelto 20 mg tablet 20 mg PO DAILY Qty: 30 4RF Rx Instructions: must administer with evening meal Follow-up/Referrals: Keyona Ramirez APRN [Primary Care Provider, Family Practice] Time of Disposition: 12:56
[2025-03-02 12:54] LABS: EDUAAPPEAR Cloudy; EDUABILI Negative (Negative); EDUABLOOD Negative (Negative); EDUACOLOR1 Yellow; EDUAGLUCOSE Negative (Negative); EDUAKETONE Negative (Negative); EDUALEUKO Negative (Negative); EDUANITRATE Negative (Negative); EDUAPH 7.5; EDUAPROTEIN Negative (Negative); EDUASPGRAVITY 1.020; EDUAUROBILI 0.2
== END 2025-03-02 13:00 | disposition home or self-care (01) ==
PROVIDERS: Emergency Provider Nurse Practitioner Family; PCP Nurse Practitioner Family
DX: N41.9 Inflammatory disease of prostate, unspecified (principal); I50.9 Heart failure, unspecified; N40.0 Benign prostatic hyperplasia without lower urinary tract symptoms; K31.84 Gastroparesis; M47.816 Spondylosis without myelopathy or radiculopathy, lumbar region; Z79.01 Long term (current) use of anticoagulants
CPT/HCPCS: 81003; 87086; 99213; G0463